=== PATIENT | female | born 1955 | race Caucasian/White ===

== ENCOUNTER 2018-03-08 19:38 | Emergency (ER) | payer OTHER ==
[2018-03-08] MEDS ORDERED: Potassium Chloride 10% 20 MEQ/15 ML Soln 15 ML UD Cup PO ONE (20:48)
[2018-03-08] MEDS ORDERED: Amoxicillin/Clavulanate K 500-125 MG Tab PO ONE (21:08)
--- NOTE | 2018-03-08 21:56 | EDM.PDOC ---
ED HPI GENERAL MEDICAL PROBLEM - General Stated Complaint: POSSIBLE STROKE Time Seen by Provider: 03/08/18 20:00 Source of Information: Reports: Patient, Family History Limitations: Reports: Other (CONFUSED AND POOR HISTORIAN) - History of Present Illness INITIAL COMMENTS - FREE TEXT/NARRATIVE: 62 YEAR OLD WOMAN WH WAS WITH HER DAUGHTER AND SON THIS AND TODAY FELT WEAK, TIRED WITHOUT A FEVER WAS CONFUSED IN HER CONVERSATION WITH HER DAUGHTER AN HOUR AGO . 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 SHE IS ON COUMADIN. 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: Other (see below) (NONE) - Related Data Allergies Allergy/AdvReac Type Severity Reaction Status Date / Time codeine Allergy Respiratory Verified 03/08/18 20:47 Depression Home Meds: Home Meds Amoxicillin/Potassium Clav [Augmentin 500-125 Tablet] 1 each PO BID #20 tablet 03/08/18 [Rx] Aspirin 81 mg PO DAILY 03/08/18 [History] Metoprolol Succinate 50 mg PO DAILY 03/08/18 [History] Metoprolol Succinate/HCTZ [Metoprolol ER-Hctz 100-12.5 mg] 12.5 mg PO DAILY PRN 03/08/18 [History] Phytonadione [Vitamin K] 100 mcg PO DAILY 03/08/18 [History] Warfarin [Coumadin] 2.5 mg PO MOWEFR 03/08/18 [History] Warfarin [Coumadin] 5 mg PO SUTUTHSA 03/08/18 [History] Zolpidem Tartrate 10 mg PO DAILY PRN 03/08/18 [History] ED ROS GENERAL - Review of Systems Review Of Systems: See Below Constitutional: Reports: No Symptoms HEENT: Reports: No Symptoms Respiratory: Reports: No Symptoms Cardiovascular: Reports: No Symptoms Endocrine: Reports: No Symptoms GI/Abdominal: Reports: No Symptoms : Reports: No Symptoms Musculoskeletal: Reports: No Symptoms Skin: Reports: No Symptoms Neurological: Reports: No Symptoms Hematologic/Lymphatic: Reports: No Symptoms Immunologic: Reports: No Symptoms - Physical Exam Exam: See Below Text/Narrative:: MILDLY OVER WEIGHT MILD CONFUSED BUT ORIENTED X 3, MILD , MILD OVER WEIGHT , SHORT STATURE IN NO ACUTE DISTRESS Exam Limited By: No Limitations General Appearance: Alert Eye Exam: Bilateral Eye: Normal Inspection, Other (MILD ARETERIAL NARROWING) Ears: Normal External Exam Nose: Normal Inspection Throat/Mouth: Normal Inspection Head Exam: Atraumatic Neck: Normal Inspection, Other (NO BRUITS) Respiratory/Chest: No Respiratory Distress Cardiovascular: Normal Peripheral Pulses, Other (NO MUMUR, S2>S1) GI/Abdominal: Normal Bowel Sounds Neuro Exam (Abbreviated): Alert, Oriented, CN II-XII Intact, Normal Cognition, Normal Gait, Normal Reflexes, No Motor/Sensory Deficits DTR: 1+: Bicep (R), Bicep (L), Patella (R), Patella (L), Achilles (R), Achilles (L) Back Exam: Normal Inspection Extremities: Normal Inspection Course - Vital Signs Last Recorded V/S: Last Vital Signs Temp 36.6 C 03/08/18 19:38 Pulse 96 03/08/18 19:38 Resp 23 H 03/08/18 19:38 BP 141/64 H 03/08/18 19:38 Pulse Ox 96 03/08/18 19:38 - Orders/Labs/Meds Orders: Active Orders 24 hr Category Date Time Status EKG Documentation Completion [RC] ASDIRECTED Care 03/08/18 20:13 Active Head wo Cont [CT] Stat Exams 03/08/18 20:07 Taken URINALYSIS W/MICROSCOPIC [UA W/MICROSCOPIC] [URIN] Stat Lab 03/08/18 21:04 Ordered EKG 12 Lead [EK] Routine Ther 03/08/18 20:13 Ordered Labs: Laboratory Tests 03/08/18 03/08/18 03/08/18 Range/Units 19:45 20:11 20:11 WBC 10.6 (4.5-12.0) X10-3/uL RBC 4.77 (3.23-5.20) x10(6)uL Hgb 14.6 (11.5-15.5) g/dL Hct 43.0 (30.0-51.3) % MCV 90.1 (80-96) fL MCH 30.7 (27.7-33.6) pg MCHC 34.0 (32.2-35.4) g/dL RDW 12.0 (11.5-15.5) % Plt Count 277 (125-369) X10(3)uL MPV 7.2 L (7.4-10.4) fL Neut % (Auto) 46.4 (46-82) % Lymph % (Auto) 46.7 H (13-37) % Blanco % (Auto) 5.1 (4-12) % Eos % (Auto) 1 (1.0-5.0) % Baso % (Auto) 1 (0-2) % Neut # (Auto) 4.9 (1.6-8.3) # Lymph # (Auto) 5.0 (0.6-5.0) # Blanco # (Auto) 0.5 (0.0-1.3) # Eos # (Auto) 0.1 (0.0-0.8) # Baso # (Auto) 0.1 (0.0-0.2) # PT (8.7-11.1) INR (0.89-1.13) D-Dimer, Quantitative (0.0-0.59) mg/LFEU Sodium (135-145) mmol/L Potassium (3.5-5.3) mmol/L Chloride (100-110) mmol/L Carbon Dioxide (21-32) mmol/L BUN (7-18) mg/dL Creatinine (0.55-1.02) mg/dL Est Cr Clr Drug Dosing Estimated GFR (MDRD) (>60) BUN/Creatinine Ratio (9-20) Glucose (80-116) mg/dL POC Glucose 200 H (80-116) mg/dL Calcium (8.6-10.2) mg/dL Total Bilirubin (0.1-1.3) mg/dL AST (5-25) IU/L ALT (12-36) U/L Alkaline Phosphatase (56-112) IU/L Troponin I 0.023 (<0.017-0.056) ng/mL Total Protein (6.0-8.0) g/dL Albumin (3.2-4.6) g/dL Globulin g/dL Albumin/Globulin Ratio Urine Color (YELLOW) Urine Appearance (CLEAR) Urine pH (5.0-6.5) Ur Specific [place] (1.010-1.025) Urine Protein (NEGATIVE) mg/dL Urine Glucose (UA) (NEGATIVE) mg/dL Urine Ketones (NEGATIVE) mg/dL Urine Occult Blood (NEGATIVE) Urine Nitrite (NEGATIVE) Urine Bilirubin (NEGATIVE) Urine Urobilinogen (NEGATIVE) mg/dL Ur Leukocyte Esterase (NEGATIVE) Urine RBC (0) Urine WBC (0) Ur Squamous Epith Cells (NS,R,O) Urine Bacteria (NS) 03/08/18 03/08/18 03/08/18 Range/Units 20:11 20:11 20:11 WBC (4.5-12.0) X10-3/uL RBC (3.23-5.20) x10(6)uL Hgb (11.5-15.5) g/dL Hct (30.0-51.3) % MCV (80-96) fL MCH (27.7-33.6) pg MCHC (32.2-35.4) g/dL RDW (11.5-15.5) % Plt Count (125-369) X10(3)uL MPV (7.4-10.4) fL Neut % (Auto) (46-82) % Lymph % (Auto) (13-37) % Blanco % (Auto) (4-12) % Eos % (Auto) (1.0-5.0) % Baso % (Auto) (0-2) % Neut # (Auto) (1.6-8.3) # Lymph # (Auto) (0.6-5.0) # Blanco # (Auto) (0.0-1.3) # Eos # (Auto) (0.0-0.8) # Baso # (Auto) (0.0-0.2) # PT 22.5 H (8.7-11.1) INR 2.34 H (0.89-1.13) D-Dimer, Quantitative 0.27 (0.0-0.59) mg/LFEU Sodium 136 (135-145) mmol/L Potassium 3.3 L (3.5-5.3) mmol/L Chloride 103 (100-110) mmol/L Carbon Dioxide 27 (21-32) mmol/L BUN 16 (7-18) mg/dL Creatinine 0.7 (0.55-1.02) mg/dL Est Cr Clr Drug Dosing TNP Estimated GFR (MDRD) > 60 (>60) BUN/Creatinine Ratio 22.9 H (9-20) Glucose 197 H (80-116) mg/dL POC Glucose (80-116) mg/dL Calcium 9.0 (8.6-10.2) mg/dL Total Bilirubin 0.3 (0.1-1.3) mg/dL AST 10 (5-25) IU/L ALT 30 (12-36) U/L Alkaline Phosphatase 92 (56-112) IU/L Troponin I (<0.017-0.056) ng/mL Total Protein 7.8 (6.0-8.0) g/dL Albumin 3.8 (3.2-4.6) g/dL Globulin 4.0 g/dL Albumin/Globulin Ratio 1.0 Urine Color (YELLOW) Urine Appearance (CLEAR) Urine pH (5.0-6.5) Ur Specific [place] (1.010-1.025) Urine Protein (NEGATIVE) mg/dL Urine Glucose (UA) (NEGATIVE) mg/dL Urine Ketones (NEGATIVE) mg/dL Urine Occult Blood (NEGATIVE) Urine Nitrite (NEGATIVE) Urine Bilirubin (NEGATIVE) Urine Urobilinogen (NEGATIVE) mg/dL Ur Leukocyte Esterase (NEGATIVE) Urine RBC (0) Urine WBC (0) Ur Squamous Epith Cells (NS,R,O) Urine Bacteria (NS) 03/08/18 Range/Units 21:04 WBC (4.5-12.0) X10-3/uL RBC (3.23-5.20) x10(6)uL Hgb (11.5-15.5) g/dL Hct (30.0-51.3) % MCV (80-96) fL MCH (27.7-33.6) pg MCHC (32.2-35.4) g/dL RDW (11.5-15.5) % Plt Count (125-369) X10(3)uL MPV (7.4-10.4) fL Neut % (Auto) (46-82) % Lymph % (Auto) (13-37) % Blanco % (Auto) (4-12) % Eos % (Auto) (1.0-5.0) % Baso % (Auto) (0-2) % Neut # (Auto) (1.6-8.3) # Lymph # (Auto) (0.6-5.0) # Blanco # (Auto) (0.0-1.3) # Eos # (Auto) (0.0-0.8) # Baso # (Auto) (0.0-0.2) # PT (8.7-11.1) INR (0.89-1.13) D-Dimer, Quantitative (0.0-0.59) mg/LFEU Sodium (135-145) mmol/L Potassium (3.5-5.3) mmol/L Chloride (100-110) mmol/L Carbon Dioxide (21-32) mmol/L BUN (7-18) mg/dL Creatinine (0.55-1.02) mg/dL Est Cr Clr Drug Dosing Estimated GFR (MDRD) (>60) BUN/Creatinine Ratio (9-20) Glucose (80-116) mg/dL POC Glucose (80-116) mg/dL Calcium (8.6-10.2) mg/dL Total Bilirubin (0.1-1.3) mg/dL AST (5-25) IU/L ALT (12-36) U/L Alkaline Phosphatase (56-112) IU/L Troponin I (<0.017-0.056) ng/mL Total Protein (6.0-8.0) g/dL Albumin (3.2-4.6) g/dL Globulin g/dL Albumin/Globulin Ratio Urine Color Yellow (YELLOW) Urine Appearance Clear (CLEAR) Urine pH 5.0 (5.0-6.5) Ur Specific [place] 1.015 (1.010-1.025) Urine Protein Negative (NEGATIVE) mg/dL Urine Glucose (UA) 50 H (NEGATIVE) mg/dL Urine Ketones Negative (NEGATIVE) mg/dL Urine Occult Blood Moderate H (NEGATIVE) Urine Nitrite Negative (NEGATIVE) Urine Bilirubin Negative (NEGATIVE) Urine Urobilinogen Normal (NEGATIVE) mg/dL Ur Leukocyte Esterase Negative (NEGATIVE) Urine RBC 0-5 (0) Urine WBC 0-5 (0) Ur Squamous Epith Cells Few H (NS,R,O) Urine Bacteria Few H (NS) Meds: Medications Discontinued Medications Generic Name Dose Route Start Last Admin Trade Name Freq PRN Reason Stop Dose Admin Amoxicillin/Clavulanate Potassium 1 tab 03/08/18 21:08 03/08/18 21:17 Augmentin 500 Mg\125 Mg PO 03/08/18 21:09 1 tab ONETIME ONE Administration Potassium Chloride 40 meq 03/08/18 20:48 03/08/18 21:08 Potassium Chloride Solution PO 03/08/18 20:49 40 meq ONETIME ONE Administration Departure - Departure Time of Disposition: 21:15 Disposition: Home, Self-Care 01 Clinical Impression: Confusion, Maxillary sinusitis, acute - Discharge Information *PRESCRIPTION DRUG MONITORING PROGRAM REVIEWED*: No *COPY OF PRESCRIPTION DRUG MONITORING REPORT IN PATIENT GORGE: No Prescriptions: Amoxicillin/Potassium Clav [Augmentin 500-125 Tablet] 1 each PO BID #20 tablet Instructions: Amoxicillin; Clavulanic Acid tablets, Sinusitis, Adult, Easy-to- Read Referrals: PCP,Not In Area [Primary Care Provider] - Additional Instructions: the confusion may have been related to the maxillary sinus inflammation. the white count does not suggest an infection but you still may have the beginnings of symptom from an early sinus infection since your right maxillary sinus was inflamed on the cat scan and it was tender on the exam I have started augmentin 500 mg twice a day, I purposely chose to use augmentin not the ususal 3 x's per day but twice a day because you are on coumadin this antibiotic can affect your INR and it may go up follow up with your MD next 3-5 days,earlier if worse - My Orders Last 24 Hours: My Active Orders 03/08/18 20:07 Head wo Cont [CT] Stat 03/08/18 20:13 EKG Documentation Completion [RC] ASDIRECTED EKG 12 Lead [EK] Routine 03/08/18 21:04 URINALYSIS W/MICROSCOPIC [UA W/MICROSCOPIC] [URIN] Stat - Assessment/Plan Last 24 Hours: My Active Orders 03/08/18 20:07 Head wo Cont [CT] Stat 03/08/18 20:13 EKG Documentation Completion [RC] ASDIRECTED EKG 12 Lead [EK] Routine 03/08/18 21:04 URINALYSIS W/MICROSCOPIC [UA W/MICROSCOPIC] [URIN] Stat
== END 2018-03-08 21:25 | disposition home or self-care (01) ==
LOC: FB.ED 19:38
DX: R41.0 Disorientation, unspecified (principal); J01.00 Acute maxillary sinusitis, unspecified; I25.810 Atherosclerosis of coronary artery bypass graft(s) without angina pectoris; Z88.5 Allergy status to narcotic agent; Z79.899 Other long term (current) drug therapy; Z79.82 Long term (current) use of aspirin; Z79.01 Long term (current) use of anticoagulants; Z95.1 Presence of aortocoronary bypass graft
CPT/HCPCS: 36415; 70450; 80053; 81001; 82962; 84484; 85025; 85379; 85610; 93005; 99285; A9270